=== PATIENT | female | born 1990 | race Caucasian/White ===

== ENCOUNTER 2016-11-14 03:19 | Inpatient (IN) | payer OTHER ==
[~2016-11-14] VITALS: Ht 162.6 cm; Wt 50.3 kg
[~2016-11-14 03:19] MED LIST: ACET325T9 PO; CIPR250T30 PO; CIPR500T94 PO; ETON1VAG VG; HYDR-2666 PO; IBUP200T43 PO; KETO10TA PO; LEVO500T38 PO; MULT-55 PO; NEBULIZER NEB; ONDA4TAB10 SL; OXYC-323 PO; OXYC1TAB7 PO; PHEN-373 PO; PHEN100T82 PO; PHEN100T91 PO; S AD PO; TRAM-29 PO
[2016-11-14 06:00] VITALS: BP 115/76
[2016-11-14] MEDS ORDERED: ONDANSETRON PF 4 MG/2 ML VIAL. IV PRN ×2 (06:15→10:00)
[2016-11-14] MEDS ORDERED: MORPHINE SULFATE 2 MG/ML DISP.SYRIN. IV PRN (06:15)
[2016-11-14] MEDS ORDERED: IV NORMAL SALINE 1000ML BAG 1,000 ML IV SCH (06:30)
--- NOTE | 2016-11-14 09:05 | PDOC ---
SUBJECTIVE Subjective Pt. admitted with right pyelonephritis OBJECTIVE Objective Mild right sided tenderness Vital Signs Vital Signs Date Time Temp Pulse Resp B/P Pulse Ox O2 Delivery O2 Flow Rate FiO2 11/14/16 06:00 98.9 87 18 115/76 97 Room Air 98.9 PHYSICAL EXAM Physical Exam Minimal right sided tenderness ASSESSMENT/PLAN Assessment/Plan Right pyelonephritis S/P right ureteroscopy multiple times for mid right ureteral stones Right hydronephrosis-stable Suspect right ureteral stricture Treat right pyelonephritis Refer to Dr. Mcclure as out-patient at urology for further evaluation and treatment of right hydronephrosis Problems: KAREN SMALL MD Nov 14, 2016 09:05
--- NOTE | 2016-11-14 09:24 | PDOC1 ---
History and Physical Past Medical History Cardiovascular: No pertinent hx Pulmonary: No pertinent hx GI: No pertinent hx Heme/Onc: No pertinent hx Hepatobiliary: No pertinent hx Psych: No pertinent hx Rheumatologic: No pertinent hx Renal/: Other Past Surgical History Past Surgical History: Hernia Repair, Other Family History Family History: No Significant Social History ALCOHOL: none Current Medications Current Medications Current Medications Medications (Trade) Dose Ordered Sig/Ye Start Time Stop Time Status Last Admin Dose Admin Ibuprofen (Motrin) 200 mg 1X ONCE 11/14/16 09:30 11/14/16 09:31 Levofloxacin/ Dextrose (LEVAQUIN 500mg PREMIX) 100 ml @ 100 mls/hr Q24H 11/14/16 07:00 11/14/16 06:41 100 MLS/HR Morphine Sulfate 2 mg PRN Q2HR PRN 11/14/16 06:15 Ondansetron HCl 4 mg 4 mg PRN Q6HRS PRN 11/14/16 06:15 Sodium Chloride (Iv Sodium Chloride 0.9% 1000ml Bag) 1,000 ml @ 75 mls/hr [id number] 11/14/16 06:30 11/14/16 06:30 75 MLS/HR Allergies Allergies Allergies Coded Allergies Type Severity Reaction Last Updated Verified No Known Medication Allergies Allergy Unknown 09/12/16 Yes Milk Containing Products Adverse Reaction Intermediate Intolerance 09/12/16 Yes ROS Review of System CONSTITUTIONAL: No fever or chills EYES: No recent changes SKIN: No rash or itching CARDIOVASCULAR: No chest pain, syncope, palpitations, or edema RESPIRATORY: No SOB or cough GASTROINTESTINAL: nausea, abdominal pain NEUROLOGICAL: No headaches or weakness ENDOCRINE: No cold or heat intolerance GENITOURINARY: No urgency or frequency of urination MUSCULOSKELETAL: No back pain or joint pain LYMPHATICS: No enlarged lymph nodes PSYCHIATRIC: No anxiety or depression Physical Exam Physical Exam GEN.: No apparent distress. Alert and oriented. HEENT: Head is normocephalic, atraumatic NECK: Supple. no jvd LUNGS: Clear to auscultation. HEART: RRR, S1, S2 present. Peripheral pulses intact ABDOMEN: Soft, r flank region tenderness. . EXTREMITIES: Without any cyanosis. NEUROLOGIC: Normal speech, normal tone PSYCHIATRIC: Normal affect, normal mood. SKIN: No ulcerations Vitals Vitals Vital Signs Date Time Temp Pulse Resp B/P Pulse Ox O2 Delivery O2 Flow Rate FiO2 11/14/16 06:00 98.9 87 18 115/76 97 Room Air 98.9 VTE Prophylaxis Ordered VTE Prophylaxis Devices: Yes VTE Pharmacological Prophylaxi: No LEILANI PIEDRA MD Nov 14, 2016 09:24
[2016-11-14] MEDS ORDERED: IBUPROFEN 200 MG TABLET PO ONE (09:30)
[2016-11-14] MEDS ORDERED: ALBUTEROL SULFATE 2.5 MG/3 ML NEBU. NEB PRN (10:00)
[2016-11-14] MEDS ORDERED: ACETAMINOPHEN 325 MG TABLET. PO PRN (10:00)
[2016-11-14] MEDS ORDERED: hydrALAZINE 20 MG/ML VIAL. IVP PRN (10:00)
[2016-11-14] MEDS ORDERED: HYDROCODONE/APAP 5/325MG TABLET. PO PRN (10:00)
[2016-11-14] MEDS ORDERED: IV NORMAL SALINE 1000ML BAG 1,000 ML IV ONE (10:00)
[2016-11-14 11:00] VITALS: BP 104/62
[2016-11-14] MEDS: CEFTRIAXONE SODIUM 1 GM in IV NORMAL SALINE 50ML 50 ML IV SCH (11:13)
[2016-11-14] MEDS ORDERED: POTASSIUM CHLORIDE 20 MEQ TABLET.ER. PO ONE (13:30)
[2016-11-14 15:15] VITALS: BP 105/70
[2016-11-14 19:45] VITALS: BP 103/49
--- NOTE | 2016-11-14 19:56 | HP ---
ADMIT DATE: 11/14/2016 CHIEF COMPLAINT: Right-sided abdominal pain, flank pain. HISTORY OF PRESENT ILLNESS: A 26-year-old female patient with prior history of renal stones and status post ureteral stents by Dr. Hinson, presented to [place] [facility] with complaints of 1-day history of acute right-sided abdominal pain, intractable in nature. The patient tried tramadol at home and pain is not tolerable and upon arrival to ER, she had CT of the abdomen, which showed 6 mm linear calcification external to the right UV junction. The patient has been transferred to [facility] for Urology consultation as CT result showed abundant extravasation of the contrast out of the right renal collecting system. PAST MEDICAL HISTORY: Right renal stones. PAST SURGICAL HISTORY: Renal stents placement, hernia repair. FAMILY HISTORY: Hypertension. SOCIAL HISTORY: No smoking. Occasional alcohol. No drug abuse. MEDICATIONS: Reviewed and reconciled. Please see MRAD. ALLERGIES: NKDA. REVIEW OF SYSTEMS, PHYSICAL EXAMINATION: Please see my electronic H and P. LABORATORY DATA: CT of the abdomen reviewed from the [facility]. ASSESSMENT: 1. Pyelonephritis, present on admission. 2. A 6 mm linear calcification external to the right ureterovesical junction. 3. Right ureteral stent from prior hospitalization. PLAN: 1. Admit the patient for IV antibiotics. She has been evaluated by Urology. Did speak with Dr. Armstrong. He would like to treat with antibiotics initially and then transfer to Urology outpatient for further workup. 2. IV hydration with normal saline. 3. Pain control with IV morphine 2 mg q. 12. 4. P.r.n. Zofran for nausea. 5. Follow urine cultures and sensitivities. 6. No DVT prophylaxis. 7. If the patient's symptoms do not improve, I will consult Infectious Disease for further recommendations. 8. Labs from [facility] did not show any acute findings except for urine nitrates positive and urine leuk esterase is trace, WBC more than 40. LEILANI PIEDRA MD DR: HEMAL/ryan JOB#: [id number] / [id number] SHANTI
[2016-11-14 23:30] VITALS: BP 108/65
[2016-11-15 07:34] LABS: BASO % 1 % (0-3); EOS % 3 % (0-3); HEMATOCRIT 29.8 % (36.0-47.0); HEMOGLOBIN 9.2 g/dL (12.0-15.5); LYMPH # 1.5 x10^3/uL (1.0-4.8); LYMPH % 17 % (24-48); MEAN CORPUSCULAR HEMOGLOBIN 23 pg (25-35); MEAN CORPUSCULAR HGB CONC 31 g/dL (31-37); MEAN CORPUSCULAR VOLUME 73 fL (79-100); MONO % 6 % (0-9); NEUT % 74 % (31-73); PLATELET COUNT 275 x10^3/uL (140-400); RED CELL DISTRIBUTION WIDTH 15.9 % (11.5-14.5); WHITE BLOOD COUNT 8.5 x10^3/uL (4.0-11.0)
[2016-11-15 07:37] LABS: CALCIUM 8.7 mg/dL (8.5-10.1); CREATININE 0.6 mg/dL (0.6-1.0); GFR 120.8
[2016-11-15 07:49] VITALS: BP 89/52
[2016-11-15 09:13] VITALS: BP 113/63
[2016-11-15] MEDS: CEFTRIAXONE SODIUM 1 GM in IV NORMAL SALINE 50ML 50 ML IV SCH (10:18)
[2016-11-15 11:13] VITALS: BP 111/62
[2016-11-15] MEDS ORDERED: LEVO500T38 PO (11:14)
--- NOTE | 2016-11-15 18:54 | CONS ---
DATE OF CONSULTATION: 11/14/2016 LOCATION: The patient is in room 263. HISTORY OF PRESENT ILLNESS: The patient is a very pleasant 26-year-old female who was admitted with right-sided flank and abdominal pain consistent with the pyelonephritis. The patient has a history of stone disease. She originally had presented back last fall with an 8 mm right mid ureteral stone. She underwent multiple ureteroscopies and laser lithotripsies, was also noted at one time to have extravasation of contrast and possible ureteral injury. Has a right ureteral stent in place. She was having increased pain and cramping and that is what brought her in the hospital yesterday evening. She had a CT scan which showed stable right-sided hydronephrosis. She does have a right ureteral stent in place. Her white count is 10 and her creatinine is 0.8. Urine showed too numerous to count red cells, 5-10 white cells, few bacteria, nitrite negative. The patient was placed on IV antibiotics and she is now feeling much better. PAST MEDICAL HISTORY: Significant for one prior stone. PAST SURGICAL HISTORY: She has also had umbilical herniorrhaphy in the past and hysteroscopy in the past. MEDICATIONS: She normally takes just control pill and vitamin. ALLERGIES: She has allergy to milk products, but no known drug allergies. PHYSICAL EXAMINATION: ABDOMEN: The patient with some minimal tenderness in the right flank and abdomen. Abdomen otherwise is soft and nontender. PLAN: I talked with the patient concerning her findings and with her history of the mid ureteral stone and probable mid ureteral stricture, I would recommend just treating her UTI right now with the pyelonephritis and then have her referred to Dr. Urban Mcclure of Urology as an outpatient for further evaluation and treatment of her right-sided hydronephrosis and treatment. I certainly appreciate being allowed to participate in this patient's care. KAREN SMALL MD DR: MARTHA/ryan JOB#: [id number] / [id number]
--- NOTE | 2016-11-16 01:58 | DS ---
DATE OF DISCHARGE: 11/15/2016 DISCHARGE DIAGNOSES: 1. Pyelonephritis, present on admission, resolving. 2. Right ureteral stent placement from prior hospitalization. BRIEF HOSPITAL COURSE: A 26-year-old female patient admitted to the hospital for pyelonephritis and the patient was evaluated by Urology, Dr. Armstrong during hospitalization. He recommends way to treat patient's pyelonephritis and the patient can see Dr. Mcclure as outpatient at Urology. She was treated with IV antibiotics, IV Rocephin and IV hydration. Pain has been controlled with oral narcotics. Today, her symptoms have been resolved. She is asymptomatic and hemodynamically stable and wants to go home, stable at the time of discharge. DISCHARGE EXAMINATION: GENERAL: Alert, oriented x 3. HEART: S1, S2 present. LUNGS: Clear to auscultation. ABDOMEN: Soft, nontender, no organomegaly. EXTREMITIES: No edema. DISCHARGE DISPOSITION: Home. DISCHARGE CONDITION: Stable. DISCHARGE MEDICATIONS: Levaquin 500 mg daily for 7 days. DISCHARGE FOLLOWUP: With primary care doctor and Urology at . Total time spent for discharge is 31 minutes for patient education, counseling, and coordination of care. LEILANI PIEDRA MD DR: HEMAL/ryan JOB#: [id number] / [id number]
== END 2016-11-15 12:15 | disposition home or self-care (01) | DRG 690 ==
LOC: 2 SOUTH 05:54
PROVIDERS: ADMIT Internal Medicine; ATTEND Internal Medicine
DX: N12 Tubulo-interstitial nephritis, not specified as acute or chronic (principal); Z91.011 Allergy to milk products; Z82.49 Family history of ischemic heart disease and other diseases of the circulatory system; Z87.442 Personal history of urinary calculi
CPT/HCPCS: 36415; 80048; 85027; J0696; J1956; J2270; J2405; J7030

== ENCOUNTER 2017-08-08 18:33 | Emergency (ER) | payer OTHER ==
[~2017-08-08] VITALS: Ht 162.6 cm; Wt 51.3 kg
[~2017-08-08 18:33] MED LIST changes: -HYDR-2666 PO; +HYDR-2758 PO; -LEVO500T38 PO; +LEVO500T59 PO; -PHEN-373 PO; +PHEN-443 PO; +PHEN-444 PO; -PHEN100T91 PO; -TRAM-29 PO; +TRAM-48 PO
[2017-08-08] MEDS ORDERED: ONDANSETRON PF 4 MG/2 ML VIAL. IV ONE (18:45)
[2017-08-08] MEDS ORDERED: IV NORMAL SALINE 1000ML BAG 1,000 ML IV SCH (18:45)
[2017-08-08 18:55] LABS: BASO % 1 % (0-3); EOS % 2 % (0-3); HEMATOCRIT 34.7 % (36.0-47.0); HEMOGLOBIN 11.2 g/dL (12.0-15.5); LYMPH % 29 % (24-48); MEAN CORPUSCULAR HEMOGLOBIN 26 pg (25-35); MEAN CORPUSCULAR HGB CONC 32 g/dL (31-37); MEAN CORPUSCULAR VOLUME 79 fL (79-100); MONO % 8 % (0-9); NEUT % 61 % (31-73); PLATELET COUNT 240 x10^3/uL (140-400); RED BLOOD COUNT 4.41 x10^6/uL (3.50-5.40); RED CELL DISTRIBUTION WIDTH 19.8 % (11.5-14.5); WHITE BLOOD COUNT 6.9 x10^3/uL (4.0-11.0)
--- NOTE | 2017-08-08 18:55 | PHYS DOC ---
Past Medical History Past Medical History Adult General Chief Complaint Chief Complaint: VOMITING IN HPI HPI Patient is a 26 year old female presents with vomiting 26-year-old female who is at 11 weeks 2 days with a last menstrual period of May 21 presents with multiple episodes of vomiting for the last 36 hours. No vaginal bleeding or discharge. No dysuria. She did have a sonogram previously in her [employer]'s office. Currently no complaints of abdominal pain. No diarrhea. Symptoms are constant. No alleviating or exacerbating symptoms. [] Review of Systems Review of Systems Constitutional: Denies fever or chills Eyes: Denies change in visual acuity, redness, or eye pain HENT: Denies nasal congestion or sore throat Respiratory: Denies cough or shortness of breath Cardiovascular: No additional information not addressed in HPI GI: Denies abdominal pain, : Denies dysuria or hematuria No vaginal bleeding or contractions Musculoskeletal: Denies back pain or joint pain Integument: Denies rash or skin lesions Neurologic: Denies headache, focal weakness or sensory changes Endocrine: Denies polyuria or polydipsia Current Medications Current Medications Current Medications Medications (Trade) Dose Ordered Sig/Ye Start Time Stop Time Status Last Admin Dose Admin Ondansetron HCl (Zofran) 4 mg 1X ONCE 08/08/17 18:45 08/08/17 18:51 DC 08/08/17 18:57 4 MG Sodium Chloride 1,000 ml @ 1,000 mls/hr Q1H 08/08/17 18:45 08/08/17 19:44 DC 08/08/17 18:57 1,000 MLS/HR Has Zofran ODT Allergies Allergies Allergies Coded Allergies Type Severity Reaction Last Updated Verified No Known Medication Allergies Allergy Unknown 09/12/16 Yes Milk Containing Products Adverse Reaction Intermediate Intolerance 09/12/16 Yes Physical Exam Physical Exam Constitutional: Well developed, well nourished, no acute distress, non-toxic appearance. HENT: Normocephalic, atraumatic, bilateral external ears normal, oropharynx moist, no oral exudates, nose normal. Eyes: PERRLA, EOMI, conjunctiva normal, no discharge. Neck: Normal range of motion, no tenderness, supple, no stridor. Cardiovascular:Heart rate regular rhythm, no murmur Lungs & Thorax: Bilateral breath sounds clear to auscultation Abdomen: Bowel sounds normal, soft, no tenderness Skin: Warm, dry, no erythema, no rash. Back: No tenderness, no CVA tenderness. Extremities: No tenderness, no cyanosis, no clubbing, ROM intact, no edema. Neurologic: Alert and oriented X 3, normal motor function Psychologic: Affect normal, judgement normal, mood normal. Current Patient Data Vital Signs Vital Signs Date Time Temp Pulse Resp B/P (MAP) Pulse Ox O2 Delivery O2 Flow Rate FiO2 08/08/17 18:40 98.3 98 20 150/84 (106) 100 Room Air 98.3 Lab Values Laboratory Tests Test 08/08/17 18:38 08/08/17 18:50 Urine Collection Type Unknown Urine Color Yellow Urine Clarity Clear Urine pH 7.0 Urine Specific [place] 1.010 Urine Protein Negative mg/dL (NEG-TRACE) Urine Glucose (UA) Negative mg/dL (NEG) Urine Ketones (Stick) Negative mg/dL (NEG) Urine Blood Negative (NEG) Urine Nitrite Negative (NEG) Urine Bilirubin Negative (NEG) Urine Urobilinogen Dipstick 0.2 mg/dL (0.2 mg/dL) Urine Leukocyte Esterase Small (NEG) Urine RBC 1-2 /HPF (0-2) Urine WBC 5-10 /HPF (0-4) Urine Squamous Epithelial Cells Few /LPF Urine Bacteria Few /HPF (0-FEW) Urine Mucus Mod /LPF White Blood Count 6.9 x10^3/uL (4.0-11.0) Red Blood Count 4.41 x10^6/uL (3.50-5.40) Hemoglobin 11.2 g/dL (12.0-15.5) L Hematocrit 34.7 % (36.0-47.0) L Mean Corpuscular Volume 79 fL (79-100) Mean Corpuscular Hemoglobin 26 pg (25-35) Mean Corpuscular Hemoglobin Concent 32 g/dL (31-37) Red Cell Distribution Width 19.8 % (11.5-14.5) H Platelet Count 240 x10^3/uL (140-400) Neutrophils (%) (Auto) 61 % (31-73) Lymphocytes (%) (Auto) 29 % (24-48) Monocytes (%) (Auto) 8 % (0-9) Eosinophils (%) (Auto) 2 % (0-3) Basophils (%) (Auto) 1 % (0-3) Neutrophils # (Auto) 4.2 x10^3uL (1.8-7.7) Lymphocytes # (Auto) 2.0 x10^3/uL (1.0-4.8) Monocytes # (Auto) 0.6 x10^3/uL (0.0-1.1) Eosinophils # (Auto) 0.1 x10^3/uL (0.0-0.7) Basophils # (Auto) 0.0 x10^3/uL (0.0-0.2) Sodium Level 138 mmol/L (136-145) Potassium Level 3.1 mmol/L (3.5-5.1) L Chloride Level 101 mmol/L (98-107) Carbon Dioxide Level 26 mmol/L (21-32) Anion Gap 11 (6-14) Blood Urea Nitrogen 8 mg/dL (7-20) Creatinine 0.4 mg/dL (0.6-1.0) L Estimated GFR (Cockcroft-Gault) 192.9 BUN/Creatinine Ratio 20 (6-20) Glucose Level 94 mg/dL (70-99) Calcium Level 9.1 mg/dL (8.5-10.1) Total Bilirubin 0.2 mg/dL (0.2-1.0) Aspartate Amino Transferase (AST) 14 U/L (15-37) L Alanine Aminotransferase (ALT) 13 U/L (14-59) L Alkaline Phosphatase 50 U/L (46-116) Total Protein 7.7 g/dL (6.4-8.2) Albumin 3.4 g/dL (3.4-5.0) Albumin/Globulin Ratio 0.8 (1.0-1.7) L Lipase 357 U/L (73-393) Laboratory Tests 08/08/17 18:50 Laboratory Tests 08/08/17 18:50 EKG EKG [] Radiology/Procedures Radiology/Procedures []OB < 14 WKS Clinical Indication: vomiting, dehydration, cramping Comparison: None. TECHNIQUE: Real-time ultrasound imaging of the pelvis using transabdominal window is performed. Findings: There is intrauterine gestational sac. Contour is smooth. No perigestational hemorrhage. Internally yolk sac and pole are identified. [place]-rump length 3.8 cm, 10 weeks and 5 days. EDC ultrasound is 03/01/2018. Estimated heart rate 163 bpm. Cervix length 3.7 cm. Cervix is closed. Uterus measures 11 x 9.4 x 9 cm. The maternal ovaries are identified and are similar in size. No evidence of adnexal mass. No pelvic free fluid is identified. IMPRESSION: Single live intrauterine gestation, estimated sonographic gestational age 10 weeks and 5 days. Electronically signed by: Karthik Xiong MD (08/08/2017 7:49 PM) [facility] DICTATED and SIGNED BY: KARTHIK XIONG MD DATE: 08/08/171944 Impressions: hyperemesis gravidarum Course & Med Decision Making Course & Med Decision Making Pertinent Labs and Imaging studies reviewed. (See chart for details) 1956 : Patient feels better after the IV fluids and the Zofran. Labs are essentially normal. Will discuss with Dr. Delgadillo. I think she can be dismissed with outpatient follow-up in the office. Clear return warnings. D/W Elie who recommends no antibiotics for urine and he will see in the office next week. [] Dragon Disclaimer Dragon Disclaimer This electronic medical record was generated, in whole or in part, using a voice recognition dictation system. Departure Departure Disposition: 01 HOME, SELF-CARE Referrals: ARABELLA DELGADILLO Jr, MD Additional Instructions: Please call Dr. Keene office in the next couple of days for follow up. Please return for any worsening symptoms. Scripts Ondansetron (ZOFRAN ODT) 4 Mg Tab.rapdis 1 TAB SL Q8HRS, #15 TAB Prov: FERNANDO ESCALANTE MD 08/08/17 FERNANDO ESCALANTE MD Aug 08, 2017 18:55
[2017-08-08 18:57] LABS: BILIRUBIN,URINE NEGATIVE (NEG); GLUCOSE,URINE NEGATIVE (NEG); NITRITE,URINE NEGATIVE (NEG); PROTEIN,URINE NEGATIVE (NEG-TRACE); UROBILINOGEN,URINE 0.2 mg/dL (0.2 mg/dL)
[2017-08-08 19:03] LABS: BACTERIA,URINE FEW /HPF (0-FEW); SQUAMOUS EPITHELIAL CELL,UR FEW /LPF
[2017-08-08 19:07] LABS: CALCIUM 9.1 mg/dL (8.5-10.1); CREATININE 0.4 mg/dL (0.6-1.0); GFR 192.9; POTASSIUM 3.1 mmol/L (3.5-5.1)
[2017-08-08 19:12] LABS: ALBUMIN 3.4 g/dL (3.4-5.0); ALBUMIN/GLOBULIN RATIO 0.8 (1.0-1.7); TOTAL BILIRUBIN 0.2 mg/dL (0.2-1.0); TOTAL PROTEIN 7.7 g/dL (6.4-8.2)
[2017-08-08 19:30] VITALS: BP 113/70
[2017-08-08] MEDS ORDERED: ONDA4TAB10 SL (19:51)
--- NOTE | 2017-08-08 19:52 | RAD ---
OB < 14 WKS Clinical Indication: vomiting, dehydration, cramping Comparison: None. TECHNIQUE: Real-time ultrasound imaging of the pelvis using transabdominal window is performed. Findings: There is intrauterine gestational sac. Contour is smooth. No perigestational hemorrhage. Internally yolk sac and pole are identified. [place]-rump length 3.8 cm, 10 weeks and 5 days. EDC ultrasound is 03/01/2018. Estimated heart rate 163 bpm. Cervix length 3.7 cm. Cervix is closed. Uterus measures 11 x 9.4 x 9 cm. The maternal ovaries are identified and are similar in size. No evidence of adnexal mass. No pelvic free fluid is identified. IMPRESSION: Single live intrauterine gestation, estimated sonographic gestational age 10 weeks and 5 days. Electronically signed by: Karthik Xiong MD (08/08/2017 7:49 PM) [facility]
== END 2017-08-08 20:18 | disposition home or self-care (01) ==
LOC: ER 18:33
DX: O21.9 Vomiting of pregnancy, unspecified (principal); O21.0 Mild hyperemesis gravidarum; O26.891 Other specified pregnancy related conditions, first trimester; E86.0 Dehydration; Z91.011 Allergy to milk products; Z3A.11 11 weeks gestation of pregnancy
CPT/HCPCS: 36415; 76801; 80053; 81001; 83690; 85025; 96361; 96374; 99285; J2405; J7030

== ENCOUNTER 2017-09-04 00:25 | Emergency (ER) | payer OTHER ==
[~2017-09-04] VITALS: Ht 162.6 cm; Wt 51.3 kg
[~2017-09-04 00:25] MED LIST changes: -IBUP200T43 PO; +IBUP200T44 PO
[2017-09-04 00:54] LABS: BILIRUBIN,URINE NEGATIVE (NEG); GLUCOSE,URINE NEGATIVE (NEG); NITRITE,URINE NEGATIVE (NEG); PROTEIN,URINE NEGATIVE (NEG-TRACE); UROBILINOGEN,URINE 0.2 mg/dL (0.2 mg/dL)
[2017-09-04] MEDS: fentaNYL PF VIAL 100 MCG/2 ML VIAL IV PRN ×3 (00:58→02:13)
[2017-09-04] MEDS ORDERED: IV NORMAL SALINE 500ML BAG 500 ML IV ONE (01:00)
[2017-09-04 01:07] LABS: BACTERIA,URINE FEW /HPF (0-FEW); RBC,URINE 0 /HPF (0-2); WBC,URINE OCC /HPF (0-4)
[2017-09-04 01:08] LABS: SQUAMOUS EPITHELIAL CELL,UR MOD /LPF
--- NOTE | 2017-09-04 02:10 | PHYS DOC ---
Past Medical History Past Medical History: Kidney Stone Additional Past Surgical Histo: HERNIA SX, KIDNEY STONE, EXLAP Alcohol Use: None Drug Use: None Adult General Chief Complaint Chief Complaint: ABDOMINAL PAIN HPI HPI This is a pleasant 26-year-old female presenting to the emergency department today with right lower quadrant abdominal pain/right flank pain this started yesterday. She describes a sharp shooting pain that radiates from her lower back into her right groin. She associates it similar to her previous kidney stones that she's had in the past. She reports recently finishing a dose of Bactrim for antibiotics. The pain is moderate intermittent and without alleviating factors. She is 14 weeks by ultrasound. She denies vaginal bleeding. She denies dysuria. Review of systems is negative for chest pain shortness of breath fevers chills. She has nausea with the pain. All other review of systems is negative unless otherwise noted in history of present illness. ED course: 26-year-old female presenting with right flank pain/right lower quadrant abdominal pain. Upon arrival the patient is afebrile with mild tachycardia likely secondary to pain. Physical examination shows mild right CVA tenderness. Negative McBurney's point. Nontender abdomen. Otherwise the remainder the examination is unremarkable. Ultrasound of the kidney ureter bladder was obtained along with urinalysis and test. Urinalysis not suggestive of infection. Negative for blood. US shows hydro on the right. I initially discussed the case with Dr. Arreguin our drill presser on-call who recommends patient be transferred for urology coverage. I then discussed the case with Dr. Palacio at [facility] hospitalist who accepted the patient for a direct admission. Review of Systems Review of Systems SEE ABOVE. Current Medications Current Medications Current Medications Medications (Trade) Dose Ordered Sig/[facility] Start Time Stop Time Status Last Admin Dose Admin Fentanyl Citrate (Fentanyl 2ml Vial) 25 mcg 1X PRN PRN 09/04/17 01:00 09/04/17 02:13 DC 09/04/17 02:13 25 MCG Hydromorphone HCl (Dilaudid) 0.5 mg PRN Q15MIN PRN 09/04/17 02:55 09/04/17 04:08 0.5 MG Metoclopramide HCl (Reglan Vial) 10 mg 1X ONCE 09/04/17 03:30 09/04/17 03:31 DC 09/04/17 03:12 10 MG Sodium Chloride 500 ml @ 500 mls/hr 1X ONCE 09/04/17 01:00 09/04/17 01:59 DC 09/04/17 00:58 500 MLS/HR Allergies Allergies Allergies Coded Allergies Type Severity Reaction Last Updated Verified No Known Medication Allergies Allergy Unknown 09/12/16 Yes Milk Containing Products Adverse Reaction Intermediate Intolerance 09/12/16 Yes Physical Exam Physical Exam SEE ABOVE Constitutional: Well developed, well nourished, no acute distress, non-toxic appearance. HENT: Normocephalic, atraumatic, bilateral external ears normal, oropharynx moist, no oral exudates, nose normal. [] Eyes: PERRLA, EOMI, conjunctiva normal, no discharge. Neck: Normal range of motion, no tenderness, supple, no stridor. [] Cardiovascular:Heart rate regular rhythm, no murmur Lungs & Thorax: Bilateral breath sounds clear to auscultation Abdomen: Soft nontender abdomen without rebound tenderness or guarding present. Negative McBurneys point. Negative Osborn sign. No ecchymosis present. Skin: Warm, dry, no erythema, no rash. [] Back: Nontender midline, mild right CVA tenderness Extremities: No tenderness, no cyanosis, no clubbing, ROM intact, no edema. [] Neurologic: Alert and oriented X 3, normal motor function, normal sensory function, no focal deficits noted. [] Psychologic: Affect normal, judgement normal, mood normal. [] Current Patient Data Vital Signs Vital Signs Date Time Temp Pulse Resp B/P (MAP) Pulse Ox O2 Delivery O2 Flow Rate FiO2 09/04/17 03:22 67 18 96/55 (69) 96 Room Air 09/04/17 03:11 2.0 09/04/17 00:32 97.7 97.7 Lab Values Laboratory Tests Test 09/04/17 00:35 09/04/17 00:44 09/04/17 00:50 Urine Collection Type Unknown Urine Color Yellow Urine Clarity Clear Urine pH 7.0 Urine Specific [place] 1.015 Urine Protein Negative mg/dL (NEG-TRACE) Urine Glucose (UA) Negative mg/dL (NEG) Urine Ketones (Stick) Negative mg/dL (NEG) Urine Blood Negative (NEG) Urine Nitrite Negative (NEG) Urine Bilirubin Negative (NEG) Urine Urobilinogen Dipstick 0.2 mg/dL (0.2 mg/dL) Urine Leukocyte Esterase Trace (NEG) Urine RBC 0 /HPF (0-2) Urine WBC Occ /HPF (0-4) Urine Squamous Epithelial Cells Mod /LPF Urine Bacteria Few /HPF (0-FEW) Urine Mucus Mod /LPF POC Urine HCG, Qualitative Hcg positive (Negative) White Blood Count 10.7 x10^3/uL (4.0-11.0) Red Blood Count 3.60 x10^6/uL (3.50-5.40) Hemoglobin 9.5 g/dL (12.0-15.5) L Hematocrit 28.5 % (36.0-47.0) L Mean Corpuscular Volume 79 fL (79-100) Mean Corpuscular Hemoglobin 27 pg (25-35) Mean Corpuscular Hemoglobin Concent 34 g/dL (31-37) Red Cell Distribution Width 17.6 % (11.5-14.5) H Platelet Count 188 x10^3/uL (140-400) Neutrophils (%) (Auto) 73 % (31-73) Lymphocytes (%) (Auto) 18 % (24-48) L Monocytes (%) (Auto) 7 % (0-9) Eosinophils (%) (Auto) 1 % (0-3) Basophils (%) (Auto) 0 % (0-3) Neutrophils # (Auto) 7.8 x10^3uL (1.8-7.7) H Lymphocytes # (Auto) 1.9 x10^3/uL (1.0-4.8) Monocytes # (Auto) 0.8 x10^3/uL (0.0-1.1) Eosinophils # (Auto) 0.1 x10^3/uL (0.0-0.7) Basophils # (Auto) 0.0 x10^3/uL (0.0-0.2) Sodium Level 137 mmol/L (136-145) Potassium Level 3.3 mmol/L (3.5-5.1) L Chloride Level 103 mmol/L (98-107) Carbon Dioxide Level 25 mmol/L (21-32) Anion Gap 9 (6-14) Blood Urea Nitrogen 12 mg/dL (7-20) Creatinine 0.7 mg/dL (0.6-1.0) Estimated GFR (Cockcroft-Gault) 101.1 Glucose Level 80 mg/dL (70-99) Calcium Level 9.6 mg/dL (8.5-10.1) Laboratory Tests 09/04/17 00:50 Laboratory Tests 09/04/17 00:50 EKG EKG [] Radiology/Procedures Radiology/Procedures [] Course & Med Decision Making Course & Med Decision Making Pertinent Labs and Imaging studies reviewed. (See chart for details) [] Dragon Disclaimer Dragon Disclaimer This electronic medical record was generated, in whole or in part, using a voice recognition dictation system. Departure Departure Impression: Primary Impression: Renal colic on right side Disposition: 02 TRANSFER S[facility]-TRM HOSP Condition: STABLE Referrals: ARABELLA LAKE Jr, MD (PCP) KAREN GOLD MD Sep 04, 2017 02:10
[2017-09-04 02:11] LABS: BASO % 0 % (0-3); EOS % 1 % (0-3); HEMATOCRIT 28.5 % (36.0-47.0); HEMOGLOBIN 9.5 g/dL (12.0-15.5); LYMPH # 1.9 x10^3/uL (1.0-4.8); LYMPH % 18 % (24-48); MEAN CORPUSCULAR HEMOGLOBIN 27 pg (25-35); MEAN CORPUSCULAR HGB CONC 34 g/dL (31-37); MEAN CORPUSCULAR VOLUME 79 fL (79-100); MONO % 7 % (0-9); NEUT % 73 % (31-73); PLATELET COUNT 188 x10^3/uL (140-400); RED CELL DISTRIBUTION WIDTH 17.6 % (11.5-14.5); WHITE BLOOD COUNT 10.7 x10^3/uL (4.0-11.0)
[2017-09-04 02:21] LABS: CALCIUM 9.6 mg/dL (8.5-10.1); CREATININE 0.7 mg/dL (0.6-1.0); GFR 101.1; POTASSIUM 3.3 mmol/L (3.5-5.1)
--- NOTE | 2017-09-04 02:27 | RAD ---
INDICATION: RT FLANK PAIN COMPARISON: None. FINDINGS: Focused ultrasound images obtained of the right kidney as well as attempt to visualize appendix. Right kidney is 15 cm with severe hydronephrosis. Urinary bladder is partially distended at time of exam. Incidental note is made of intrauterine with heartbeat of 147. The right ureter is distended. The appendix is not seen IMPRESSION: Severe right-sided hydronephrosis and hydroureter. Nonvisualization of appendix. Gravid uterus. Electronically signed by: Kumar Bedolla MD (09/04/2017 2:22 AM) [id number]
[2017-09-04] MEDS ORDERED: METOCLOPRAMIDE HCL 10 MG/2 ML VIAL. ONE (02:42)
[2017-09-04] MEDS ORDERED: HYDROmorphone 2 MG/ML VIAL ONE (02:43)
[2017-09-04] MEDS: HYDROmorphone 2 MG/ML VIAL IV PRN ×3 (03:11→04:08)
[2017-09-04] MEDS ORDERED: METOCLOPRAMIDE HCL 10 MG/2 ML VIAL. IV ONE (03:30)
[2017-09-04 03:45] VITALS: BP 116/67
== END 2017-09-04 04:20 | disposition short-term general hospital (02) ==
LOC: ER 00:25
DX: O26.831 Pregnancy related renal disease, first trimester (principal); N23 Unspecified renal colic; Z87.442 Personal history of urinary calculi; Z91.011 Allergy to milk products; Z3A.14 14 weeks gestation of pregnancy
CPT/HCPCS: 36415; 76775; 80048; 81001; 81025; 85025; 87086; 96361; 96374; 96375; 96376; 99285; J1170; J2765; J3010; J7040

== ENCOUNTER 2018-01-11 20:43 | Observation (INO) | payer OTHER ==
[2018-01-11] MEDS ORDERED: IV RINGERS,LACTATED 1000ML 1,000 ML IV (21:30)
[2018-01-11 21:41] LABS: BILIRUBIN,URINE NEGATIVE (NEG); CLARITY,URINE CLEAR; GLUCOSE,URINE NEGATIVE (NEG); NITRITE,URINE NEGATIVE (NEG); PROTEIN,URINE NEGATIVE (NEG-TRACE); UROBILINOGEN,URINE 0.2 mg/dL (0.2 mg/dL)
[2018-01-11 21:47] LABS: BACTERIA,URINE FEW /HPF (0-FEW); BARBITURATES NEG (NEG); BENZODIAZEPINES NEG (NEG); CANNABINOIDS NEG (NEG); COCAINE NEG (NEG); COLOR,URINE STRAW; METHADONE NEG (NEG); OPIATES NEG (NEG); PHENCYCLIDINE NEG (NEG); RBC,URINE RARE /HPF (0-2); SQUAMOUS EPITHELIAL CELL,UR FEW /LPF; WBC,URINE OCC /HPF (0-4)
[2018-01-11 21:48] LABS: AMPHETAMINE/METHAMPHETAMINE NEG (NEG); ETHANOL, URINE NEG (NEG)
== END 2018-01-11 23:07 | disposition home or self-care (01) ==
LOC: 3 SO LND 20:43
DX: O26.893 Other specified pregnancy related conditions, third trimester (principal); R07.81 Pleurodynia; Z3A.32 32 weeks gestation of pregnancy
CPT/HCPCS: 80307; 81001; 87086; G0378; G0379

== ENCOUNTER 2019-05-05 10:44 | Emergency (ER) | payer SELFPAY ==
[~2019-05-05] VITALS: Ht 162.6 cm; Wt 52.2 kg
[~2019-05-05 10:44] MED LIST changes: -HYDR-2758 PO; +HYDR-2761 PO; -OXYC-323 PO; +OXYC1TAB15 PO
--- NOTE | 2019-05-05 11:13 | PHYS DOC ---
Past Medical History Past Medical History: Kidney Stone Additional Past Surgical Histo: HERNIA SX, KIDNEY STONE, EXLAP Alcohol Use: None Drug Use: None Adult General Chief Complaint Chief Complaint: ABDOMINAL PAIN HPI HPI Patient is a 28 year old female whom is presents to the ED complaining of abdominal pain in x 1 day. Patient states she's approximately 5 weeks . Patient's last menstrual period was mid March. Describes her pain as cramping. Rates her pain as 7 out of 10. States it is intermittent. Patient also has a history of kidney stones. Denies fever, vaginal bleeding/discharge, dysur ia, hematuria, diarrhea, nausea/vomiting, chest pain or shortness of breath. Review of Systems Review of Systems Constitutional: Denies fever or chills [] Eyes: Denies change in visual acuity, redness, or eye pain [] HENT: Denies nasal congestion or sore throat [] Respiratory: Denies cough or shortness of breath [] Cardiovascular: No additional information not addressed in HPI [] GI: Complains of abdominal pain. Denies nausea, vomiting, bloody stools or diarrhea [] : Denies dysuria or hematuria [] Musculoskeletal: Denies back pain or joint pain [] Integument: Denies rash or skin lesions [] Neurologic: Denies headache, focal weakness or sensory changes [] All other systems were reviewed and found to be within normal limits, except as documented in this note. Allergies Allergies Allergies Coded Allergies Type Severity Reaction Last Updated Verified No Known Medication Allergies Allergy Unknown 09/12/16 Yes Milk Containing Products Adverse Reaction Intermediate Intolerance 09/12/16 Yes Physical Exam Physical Exam Constitutional: Well developed, well nourished, no acute distress, non-toxic appearance. [] HENT: Normocephalic, atraumatic Eyes: PERRLA, EOMI, conjunctiva normal, no discharge. [] Neck: Normal range of motion, no tenderness, supple, no stridor. [] Cardiovascular:Heart rate regular rhythm, no murmur [] Lungs & Thorax: Bilateral breath sounds clear to auscultation [] Abdomen: Bowel sounds normal, soft, no tenderness, no masses, no pulsatile masses. [] : Deferred Skin: Warm, dry, no erythema, no rash. [] Back: No tenderness, no CVA tenderness. [] Extremities: No tenderness, no cyanosis, no clubbing, ROM intact, no edema. [] Neurologic: Alert and oriented X 3, normal motor function, normal sensory function, no focal deficits noted. [] Psychologic: Affect normal, judgement normal, mood normal. [] Current Patient Data Vital Signs Vital Signs Date Time Temp Pulse Resp B/P (MAP) Pulse Ox O2 Delivery O2 Flow Rate FiO2 05/05/19 14:00 82 16 100/66 (77) 100 05/05/19 11:03 98.8 Room Air 98.8 Lab Values Laboratory Tests Test 05/05/19 10:54 05/05/19 11:06 05/05/19 11:13 Urine Collection Type Unknown Urine Color Yellow Urine Clarity Clear Urine pH 7.0 Urine Specific [place] 1.010 Urine Protein Negative mg/dL (NEG-TRACE) Urine Glucose (UA) Negative mg/dL (NEG) Urine Ketones (Stick) Negative mg/dL (NEG) Urine Blood Negative (NEG) Urine Nitrite Negative (NEG) Urine Bilirubin Negative (NEG) Urine Urobilinogen Dipstick 0.2 mg/dL (0.2 mg/dL) Urine Leukocyte Esterase Negative (NEG) Urine RBC Occ /HPF (0-2) Urine WBC Occ /HPF (0-4) Urine Squamous Epithelial Cells Occ /LPF Urine Bacteria 0 /HPF (0-FEW) Urine Mucus Slight /LPF POC Urine HCG, Qualitative Hcg positive (Negative) White Blood Count 5.5 x10^3/uL (4.0-11.0) Red Blood Count 4.10 x10^6/uL (3.50-5.40) Hemoglobin 12.5 g/dL (12.0-15.5) Hematocrit 36.6 % (36.0-47.0) Mean Corpuscular Volume 89 fL (79-100) Mean Corpuscular Hemoglobin 31 pg (25-35) Mean Corpuscular Hemoglobin Concent 34 g/dL (31-37) Red Cell Distribution Width 14.2 % (11.5-14.5) Platelet Count 194 x10^3/uL (140-400) Neutrophils (%) (Auto) 58 % (31-73) Lymphocytes (%) (Auto) 29 % (24-48) Monocytes (%) (Auto) 8 % (0-9) Eosinophils (%) (Auto) 4 % (0-3) H Basophils (%) (Auto) 1 % (0-3) Neutrophils # (Auto) 3.2 x10^3/uL (1.8-7.7) Lymphocytes # (Auto) 1.6 x10^3/uL (1.0-4.8) Monocytes # (Auto) 0.5 x10^3/uL (0.0-1.1) Eosinophils # (Auto) 0.2 x10^3/uL (0.0-0.7) Basophils # (Auto) 0.0 x10^3/uL (0.0-0.2) Maternal Serum HCG Beta Subunit 09100 mIU/mL (0-5) H Sodium Level 139 mmol/L (136-145) Potassium Level 3.8 mmol/L (3.5-5.1) Chloride Level 105 mmol/L (98-107) Carbon Dioxide Level 22 mmol/L (21-32) Anion Gap 12 (6-14) Blood Urea Nitrogen 8 mg/dL (7-20) Creatinine 0.6 mg/dL (0.6-1.0) Estimated GFR (Cockcroft-Gault) 119.0 BUN/Creatinine Ratio 13 (6-20) Glucose Level 83 mg/dL (70-99) Calcium Level 9.1 mg/dL (8.5-10.1) Total Bilirubin 0.5 mg/dL (0.2-1.0) Aspartate Amino Transferase (AST) 9 U/L (15-37) L Alanine Aminotransferase (ALT) 14 U/L (14-59) Alkaline Phosphatase 51 U/L (46-116) Total Protein 7.6 g/dL (6.4-8.2) Albumin 4.0 g/dL (3.4-5.0) Albumin/Globulin Ratio 1.1 (1.0-1.7) Laboratory Tests 05/05/19 11:13 Laboratory Tests 05/05/19 11:13 EKG EKG [] Radiology/Procedures Radiology/Procedures []PROCEDURE: OB <14 WKS W/TV OB <14 WKS W/TV History: Abdominal pain, Comparison: None. Findings: Multiple transabdominal sonographic images of the pelvis are submitted. There is a single gestational sac although pole not visualized. Ovaries are not seen. Transvaginal ultrasound: Multiple transvaginal sonographic images of pelvis are submitted. There is a single intrauterine gestational sac with identifiable yolk sac although pole not seen at this time. Amniotic fluid volume is subjectively within normal limits. Gestational sac morphology is within normal limits. Gestational sac dimension of 1.15 cm corresponds with 6 weeks 0 days. Adjusted ultrasound age is 6 weeks 0 days with estimated delivery by ultrasound 12/29/2019. LMP age is 6 weeks 0 days with estimated delivery date of 12/29/2019. Uterus measured 8.2 x 5.8 x 7.8 cm. There is mild free fluid in the posterior cul-de-sac. There is also minimal fluid in the cervical canal. There is a focus of crescenteric hypoechogenicity of the uterus near the gestational sac about 2.5 x 0.8 x 1.7 cm in size. Right ovary measured 2.7 x 2.5 x 2.5 cm with normal low resistance vascularity. There is a focus of different echogenicity of the right ovary about 2.1 x 1.7 x 1.9 cm. Left ovary measured 2.6 x 1.8 x 2.8 cm, normal low resistance vascularity. There are varices about the uterus bilaterally. Impression: 1. There is a single intrauterine gestational sac although pole is not visualized at this time for which clinical correlation with quantitative beta hCG and close interval follow-up imaging if needed is recommended. Adjusted ultrasound age is 6 weeks 0 days with estimated delivery date of 12/29/2019. There is focus of subchorionic hemorrhage near gestational sac. There is minimal nonspecific free fluid in the cul-de-sac, also minimal fluid in the cervical canal. 2. Focus of different echogenicity of the right ovary is likely corpus luteal cyst. Course & Med Decision Making Course & Med Decision Making Pertinent Labs and Imaging studies reviewed. (See chart for details) []Discussed lab and imaging findings with patient. Patient's symptoms improved in the ED. States she's feeling much better. On reexamination, abdomen is soft nontender nondistended. No peritoneal signs. Tolerating by mouth. No vaginal discharge or bleeding.Patient is to follow-up with her [facility] this week for repeat beta-hCG monitoring and ultrasound. Discussed the importance of follow-up and reasons to return to the ED. Patient understands and agrees with plan. Haley Disclaimer Dragon Disclaimer This electronic medical record was generated, in whole or in part, using a voice recognition dictation system. Departure Departure Impression: Primary Impression: Abdominal pain during Disposition: HOME, SELF-CARE Condition: IMPROVED Referrals: ARABELLA LAKE Jr, MD (PCP) Patient Instructions: Abdominal Pain During AMY OJEDA May 05, 2019 11:13
[2019-05-05 11:25] LABS: BASO % 1 % (0-3); EOS # 0.2 x10^3/uL (0.0-0.7); EOS % 4 % (0-3); HEMATOCRIT 36.6 % (36.0-47.0); HEMOGLOBIN 12.5 g/dL (12.0-15.5); LYMPH # 1.6 x10^3/uL (1.0-4.8); LYMPH % 29 % (24-48); MEAN CORPUSCULAR HEMOGLOBIN 31 pg (25-35); MEAN CORPUSCULAR HGB CONC 34 g/dL (31-37); MEAN CORPUSCULAR VOLUME 89 fL (79-100); MONO # 0.5 x10^3/uL (0.0-1.1); MONO % 8 % (0-9); NEUT # 3.2 x10^3/uL (1.8-7.7); NEUT % 58 % (31-73); PLATELET COUNT 194 x10^3/uL (140-400); RED CELL DISTRIBUTION WIDTH 14.2 % (11.5-14.5); WHITE BLOOD COUNT 5.5 x10^3/uL (4.0-11.0)
[2019-05-05 11:43] LABS: BILIRUBIN,URINE NEGATIVE (NEG); CLARITY,URINE CLEAR; COLOR,URINE YELLOW; NITRITE,URINE NEGATIVE (NEG); PROTEIN,URINE NEGATIVE (NEG-TRACE); UROBILINOGEN,URINE 0.2 mg/dL (0.2 mg/dL)
[2019-05-05 11:45] LABS: CALCIUM 9.1 mg/dL (8.5-10.1); CREATININE 0.6 mg/dL (0.6-1.0); POTASSIUM 3.8 mmol/L (3.5-5.1)
[2019-05-05 11:50] LABS: ALBUMIN/GLOBULIN RATIO 1.1 (1.0-1.7); TOTAL BILIRUBIN 0.5 mg/dL (0.2-1.0); TOTAL PROTEIN 7.6 g/dL (6.4-8.2)
[2019-05-05 11:58] LABS: BACTERIA,URINE 0 /HPF (0-FEW); RBC,URINE OCC /HPF (0-2); SQUAMOUS EPITHELIAL CELL,UR OCC /LPF; WBC,URINE OCC /HPF (0-4)
--- NOTE | 2019-05-05 12:59 | RAD ---
OB <14 WKS W/TV History: Abdominal pain, Comparison: None. Findings: Multiple transabdominal sonographic images of the pelvis are submitted. There is a single gestational sac although pole not visualized. Ovaries are not seen. Transvaginal ultrasound: Multiple transvaginal sonographic images of pelvis are submitted. There is a single intrauterine gestational sac with identifiable yolk sac although pole not seen at this time. Amniotic fluid volume is subjectively within normal limits. Gestational sac morphology is within normal limits. Gestational sac dimension of 1.15 cm corresponds with 6 weeks 0 days. Adjusted ultrasound age is 6 weeks 0 days with estimated delivery by ultrasound 12/29/2019. LMP age is 6 weeks 0 days with estimated delivery date of 12/29/2019. Uterus measured 8.2 x 5.8 x 7.8 cm. There is mild free fluid in the posterior cul-de-sac. There is also minimal fluid in the cervical canal. There is a focus of crescenteric hypoechogenicity of the uterus near the gestational sac about 2.5 x 0.8 x 1.7 cm in size. Right ovary measured 2.7 x 2.5 x 2.5 cm with normal low resistance vascularity. There is a focus of different echogenicity of the right ovary about 2.1 x 1.7 x 1.9 cm. Left ovary measured 2.6 x 1.8 x 2.8 cm, normal low resistance vascularity. There are varices about the uterus bilaterally. Impression: 1. There is a single intrauterine gestational sac although pole is not visualized at this time for which clinical correlation with quantitative beta hCG and close interval follow-up imaging if needed is recommended. Adjusted ultrasound age is 6 weeks 0 days with estimated delivery date of 12/29/2019. There is focus of subchorionic hemorrhage near gestational sac. There is minimal nonspecific free fluid in the cul-de-sac, also minimal fluid in the cervical canal. 2. Focus of different echogenicity of the right ovary is likely corpus luteal cyst. Electronically signed by: Myron Tejada MD (05/05/2019 12:57 PM) [id number]
[2019-05-05 14:00] VITALS: BP 100/66
== END 2019-05-05 14:20 | disposition home or self-care (01) ==
LOC: ER 10:44
DX: O26.891 Other specified pregnancy related conditions, first trimester (principal); R10.9 Unspecified abdominal pain; Z87.442 Personal history of urinary calculi; Z98.890 Other specified postprocedural states; Z3A.01 Less than 8 weeks gestation of pregnancy; Z91.011 Allergy to milk products
CPT/HCPCS: 36415; 76801; 76817; 80053; 81001; 81025; 84702; 85025; 86900; 86901; 99285-25